=== PATIENT | female | born 1965 | race Caucasian/White ===

== ENCOUNTER 2018-05-17 14:25 | Emergency (ER) | payer MEDICARE, MEDICAID ==
[~2018-05-17] VITALS: Ht 162.6 cm; Wt 213.6 kg
[2018-05-17 16:31] VITALS: BP 126/69
== END 2018-05-17 16:34 | disposition home or self-care (01) ==
LOC: ER 14:25
DX: R06.02 Shortness of breath (principal); R05 Cough; R42 Dizziness and giddiness; E66.01 Morbid (severe) obesity due to excess calories; Z68.45 Body mass index [BMI] 70 or greater, adult
CPT/HCPCS: 71046; 99284

== ENCOUNTER 2024-04-15 08:06 | Outpatient (CLI) | payer MEDICARE, MEDICAID ==
[2024-04-15] VITALS (7 sets, daily range): BP systolic 134–148; BP diastolic 61–83; PULSE 76–82; RESP 18; O2SAT 96–99
[~2024-04-15] VITALS: Ht 160 cm; Wt 180.0 kg
[2024-04-15] MEDS: regadenoson 0.4mg/5ml syringe IV ONE (09:40)
== END 2024-04-15 23:59 | disposition home or self-care (01) ==
LOC: RAD 08:06
PROVIDERS: ATTEND Nurse Practitioner Family
DX: Z01.810 Encounter for preprocedural cardiovascular examination (principal); I10 Essential (primary) hypertension; E78.5 Hyperlipidemia, unspecified; R06.02 Shortness of breath
CPT/HCPCS: 93017; A9500; J2785

== ENCOUNTER 2024-04-16 07:49 | Outpatient (CLI) | payer MEDICARE, MEDICAID ==
[2024-04-15] MEDS: regadenoson 0.4mg/5ml syringe IV ONE (09:33)
[~2024-04-16] VITALS: Ht 160 cm; Wt 180.0 kg
[~2024-04-16 07:49] MED LIST: aminophylline inj. 0 ML IV ONE
== END 2024-04-16 23:59 | disposition home or self-care (01) ==
LOC: RAD 07:49
PROVIDERS: ATTEND Nurse Practitioner Family
DX: R06.02 Shortness of breath (principal); Z53.8 Procedure and treatment not carried out for other reasons; I10 Essential (primary) hypertension; E11.9 Type 2 diabetes mellitus without complications; E66.01 Morbid (severe) obesity due to excess calories; E03.9 Hypothyroidism, unspecified; E78.5 Hyperlipidemia, unspecified; F41.9 Anxiety disorder, unspecified; F32.A Depression, unspecified; Z79.84 Long term (current) use of oral hypoglycemic drugs; Z79.890 Hormone replacement therapy; Z79.899 Other long term (current) drug therapy; Z90.49 Acquired absence of other specified parts of digestive tract; Z98.890 Other specified postprocedural states; Z68.45 Body mass index [BMI] 70 or greater, adult; Z88.0 Allergy status to penicillin; Z82.49 Family history of ischemic heart disease and other diseases of the circulatory system; Z83.3 Family history of diabetes mellitus
CPT/HCPCS: J0280; J2785